=== PATIENT | female | born 1970 | race Caucasian/White ===

== ENCOUNTER 2017-02-22 17:13 | Emergency (ER) | payer SELFPAY ==
[2017-02-22] MEDS ORDERED: NS 0.9% 1000 ML* 2,000 ML IV ONE (18:28)
[2017-02-22] MEDS ORDERED: Ketorolac INJ* 30 MG/ML 1 ML VIAL IV PUSH ONE (18:28)
[2017-02-22] MEDS ORDERED: HYDROmorphone* 1 MG/ML 1 ML SYR IV SLOW PU ONE (18:28)
[2017-02-22] MEDS ORDERED: Ondansetron INJ* 2 MG/ML VIAL IV ONE (18:28)
[2017-02-22 18:34] LABS: Hematocrit 35 % (35-47); Mean Corpuscular HGB Conc 32 g/dl (31-36); Mean Corpuscular Hemoglobin 23 pg (27-31); Mean Corpuscular Volume 74 fL (80-97); Mean Platelet Volume 10 um3 (7.4-10.4); Red Blood Count 4.71 10^6/ul (4.0-5.4); Red Cell Distribution Width 17 % (10.5-15); White Blood Count 14.1 10^3/ul (3.5-10.8)
[2017-02-22 18:36] LABS: Add Diff/Slide Review? Slide Review Added; Comments Flag Yes
[2017-02-22 18:47] LABS: ALT 13 U/L (7-52); AST 17 U/L (13-39); Albumin 4.3 g/dL (3.2-5.2); Alkaline Phosphatase 91 U/L (34-104); Anion Gap 12 mmol/L (2-11); BUN/Creatinine Ratio 15.8 (8-20); Blood Urea Nitrogen 12 mg/dL (6-24); CO2 Carbon Dioxide 20 mmol/L (22-32); Calcium 8.9 mg/dL (8.6-10.3); Chloride 103 mmol/L (101-111); EGFR African American 106.3 (>60); EGFR Non-African American 82.7 (>60); Globulin 4.1 g/dL (2-4); Glucose 133 mg/dL (70-100); Lipase 20 U/L (11.0-82.0); Potassium 3.4 mmol/L (3.5-5.0); Sodium 135 mmol/L (133-145); Total Protein 8.4 g/dL (6.4-8.9)
[2017-02-22 18:49] LABS: Troponin I 0.01 ng/mL (<0.04)
--- NOTE | 2017-02-22 19:15 | RAD ---
INDICATION: LEFT side abdominal pain. History of kidney stones. COMPARISON: September 13, 2008 CT. TECHNIQUE: Multidetector CT images were obtained from the lung bases to the ischial tuberosities. Evaluation of the viscera is limited without IV contrast. Multiplanar reformation. REPORT: Unremarkable visualized inferior thorax. Negative for CT abnormality of the unenhanced liver, gallbladder, pancreas, spleen. Negative for CT abnormality of the upper GI, small bowel, infra cecal appendix, or colon. Negative for ascites or free air. Small fat-containing umbilical hernia without inflammatory change. Normal adrenal glands. Unremarkable RIGHT kidney and ureter. Tiny hyperdense cortical cyst upper pole cortex LEFT kidney. Moderate LEFT hydroureteronephrosis is traced to a 3.5 mm stone at the ureteropelvic junction. No additional abnormality of the LEFT ureter. Mild LEFT perinephric inflammatory stranding. Punctate gas bubble in the urinary bladder. Unremarkable anteverted uterus and adnexal regions. Normal diameter abdominal aorta and common iliac arteries. Physiologic distention of the IVC. Unchanged sclerotic lesion with narrow zone transition at the RIGHT femoral neck compared with the 2009 exam consistent with a benign bone island. No suspicious focal osseous lesions. IMPRESSION: Moderate LEFT hydronephrosis is traced to a 3.5 mm ureteropelvic junction stone. Associated mild LEFT perinephric inflammatory stranding.
[2017-02-22] MEDS ORDERED: Tamsulosin CAP* 0.4 MG PO ONE (19:32)
[2017-02-22] MEDS ORDERED: traMADol TAB* 50 MG PO ONE ×2 (21:09→21:24)
--- NOTE | 2017-02-22 21:10 | ED ---
GI/ HPI - HPI Summary HPI Summary: 46F presents with left flank pain. It radiates up to her breast and down to her groin. She states this feels like her normal kidney pain but that is it in a different location. She denies any frequency, urgency or dysuria. She is currently on her menstrual period. She denies any previous abdominal surgeries. She admits to nausea and vomiting. She denies any fever, diarrhea or constipation. She has not taken anything for pain but is in extreme pain. - History of Current Complaint Chief Complaint: EDFlankPain Time Seen by Provider: 02/22/17 18:18 Stated Complaint: LOWER ABD PAIN Pain Intensity: 9 - Allergy/Home Medications Allergies/Adverse Reactions: Allergies Allergy/AdvReac Type Severity Reaction Status Date / Time Morphine Allergy Severe agressive Verified 09/06/15 09:24 behavior Penicillins Allergy Severe Anaphylatic Verified 09/06/15 09:24 Shock PMH/Surg Hx/FS Hx/Imm Hx Endocrine/Hematology History: Denies: Hx Diabetes, Hx Thyroid Disease Cardiovascular History: Denies: Hx Coronary Artery Disease, Hx Hypercholesterolemia, Hx Hypertension Respiratory History: Denies: Hx Asthma, Hx Chronic Obstructive Pulmonary Disease (COPD), Hx Pulmonary Embolism Infectious Disease History: No Infectious Disease History: Denies: Traveled Outside the [place] in Last 30 Days - Family History Known Family History: Positive: Unknown, Cardiac Disease - Social History Alcohol Use: None Hx Substance Use: No Substance Use Type: Reports: None Smoking Status (MU): Never Smoked Tobacco Review of Systems Negative: Fever Negative: Chest Pain Negative: Shortness Of Breath Positive: Abdominal Pain, Vomiting, Nausea All Other Systems Reviewed And Are Negative: Yes Physical Exam Triage Information Reviewed: Yes Vital Signs On Initial Exam: Initial Vitals Temp Pulse Resp BP Pulse Ox 96.9 F 78 26 159/86 100 02/22/17 17:35 02/22/17 17:35 02/22/17 17:35 02/22/17 17:35 02/22/17 17:35 Vital Signs Reviewed: Yes Appearance: Positive: Pain Distress Skin: Positive: Warm, Dry Head/Face: Positive: Normal Head/Face Inspection Eyes: Positive: Normal, Conjunctiva Clear ENT: Positive: Normal ENT inspection, Pharynx normal, TMs normal Respiratory/Lung Sounds: Positive: Clear to Auscultation, Breath Sounds Present Cardiovascular: Positive: Normal, RRR Abdomen Description: Positive: Soft, Other: - tenderness in left side abdomen. Negative: CVA Tenderness (R), CVA Tenderness (L) Bowel Sounds: Positive: Present - Jenise Coma Scale Coma Scale Total: 15 Diagnostics - Vital Signs Vital Signs Temp Pulse Resp BP Pulse Ox 02/22/17 18:42 20 02/22/17 18:13 71 12 100 02/22/17 18:12 153/87 02/22/17 18:07 99.3 F 68 20 153/87 100 02/22/17 17:35 96.9 F 78 26 159/86 100 - Laboratory Lab Results: Lab Results 02/22/17 02/22/17 Range/Units 18:05 18:05 WBC 14.1 H (3.5-10.8) 10^3/ul RBC 4.71 (4.0-5.4) 10^6/ul Hgb 11.0 L (12.0-16.0) g/dl Hct 35 (35-47) % MCV 74 L (80-97) fL MCH 23 L (27-31) pg MCHC 32 (31-36) g/dl RDW 17 H (10.5-15) % Plt Count 314 (150-450) 10^3/ul MPV 10 (7.4-10.4) um3 Neut % (Auto) 82.9 (38-83) % Lymph % (Auto) 12.4 L (25-47) % Refugio % (Auto) 3.8 (1-9) % Eos % (Auto) 0.4 (0-6) % Baso % (Auto) 0.5 (0-2) % Absolute Neuts (auto) 11.6 H (1.5-7.7) 10^3/ul Absolute Lymphs (auto) 1.7 (1.0-4.8) 10^3/ul Absolute Monos (auto) 0.5 (0-0.8) 10^3/ul Absolute Eos (auto) 0.1 (0-0.6) 10^3/ul Absolute Basos (auto) 0.1 (0-0.2) 10^3/ul Absolute Nucleated RBC 0 10^3/ul Nucleated RBC % 0 Sodium 135 (133-145) mmol/L Potassium 3.4 L (3.5-5.0) mmol/L Chloride 103 (101-111) mmol/L Carbon Dioxide 20 L (22-32) mmol/L Anion Gap 12 H (2-11) mmol/L BUN 12 (6-24) mg/dL Creatinine 0.76 (0.51-0.95) mg/dL Est GFR ( Amer) 106.3 (>60) Est GFR (Non-Af Amer) 82.7 (>60) BUN/Creatinine Ratio 15.8 (8-20) Glucose 133 H (70-100) mg/dL Calcium 8.9 (8.6-10.3) mg/dL Total Bilirubin 0.50 (0.2-1.0) mg/dL AST 17 (13-39) U/L ALT 13 (7-52) U/L Alkaline Phosphatase 91 (34-104) U/L Troponin I 0.01 (<0.04) ng/mL C-React Prot High Sens 7.95 mg/L Total Protein 8.4 (6.4-8.9) g/dL Albumin 4.3 (3.2-5.2) g/dL Globulin 4.1 H (2-4) g/dL Albumin/Globulin Ratio 1.0 (1-3) Lipase 20 (11.0-82.0) U/L Beta HCG, Quant < 0.60 mIU/mL Result Diagrams: 02/22/17 18:05 02/22/17 18:05 Lab Statement: Any lab studies that have been ordered have been reviewed, and results considered in the medical decision making process. - CT abd CT Interpretation: Positive (See Comments) - IMPRESSION: Moderate LEFT hydronephrosis is traced to a 3.5 mm ureteropelvic junction stone. Associated mild LEFT perinephric inflammatory stranding. CT Interpretation Completed By: Radiologist - EKG No standard instances Cardiac Rate: NL EKG Rhythm: Sinus Rhythm ST Segment: Normal GIGU Course/Dx - Course Course Of Treatment: 46F presents with left flank pain. It radiates up to her breast and down to her groin. She states this feels like her normal kidney pain but that is it in a different location. She denies any frequency, urgency or dysuria. She is currently on her menstrual period. She denies any previous abdominal surgeries. She admits to nausea and vomiting. She denies any fever, diarrhea or constipation. She has not taken anything for pain but is in extreme pain. tenderness left side abdomen. lungs CTA. RRR. neg CVA tenderness left. CT shows stone 3.5cm. gave pain medication and told to follow up with urology. patient requested least sedating of pain medication so gave tramadol. patient understands and agrees with plan. - Diagnoses Differential Diagnoses - Female: Pyelonephritis, Urinary Tract Infection, Ureteral Calculi Provider Diagnoses: Kidney stone Discharge - Discharge Plan Condition: Good Disposition: HOME Prescriptions: Ondansetron ODT TAB* [Zofran 4 MG Odt TAB*] 4 mg PO Q6H PRN #12 tab.odt PRN Reason: Nausea Tamsulosin CAP* [Flomax CAP*] 0.4 mg PO DAILY #10 cap traMADol TAB* [Ultram*] 50 mg PO Q6HR PRN #20 tab MDD 4 PRN Reason: Pain Patient Education Materials: Kidney Stones (ED) Referrals: Alice Clay MD [Primary Care Provider] - Steve Munroe MD [Medical Doctor] - Additional Instructions: Take ibuprofen every 6 hours and narcotic as needed every 6 hours Take Zofran every 6 hours for nausea as needed Take Flomax daily starting tomorrow, first dose given in ED until stone expelled , make sure stand up slowly Follow up with urology, call office tomorrow for appointment Strain urine until collect stone Return to ED if unable to manage pain at home, develop fever, or any new or worsening symptoms
[2017-02-22 21:18] LABS: Urine Bacteria Absent (Absent); Urine Bilirubin Negative (Negative); Urine Glucose Negative (Negative); Urine Nitrite Negative (Negative)
[2017-02-22] MEDS ORDERED: Ondansetron ODT TAB* 4 MG PO ONE (21:24)
[2017-02-22 21:31] VITALS: BP 142/73
== END 2017-02-22 21:49 | disposition home or self-care (01) ==
LOC: ED 17:13
DX: N20.0 Calculus of kidney (principal); R10.84 Generalized abdominal pain; R11.2 Nausea with vomiting, unspecified
CPT/HCPCS: 36415; 74176; 80053; 81003; 81015; 83690; 84484; 84702; 85025; 86141; 93005; 96374; 96375; 99283; A9270-GY; J1170; J1885; J2405

== ENCOUNTER 2017-12-10 07:12 | Emergency (ER) | payer MEDICAID ==
--- NOTE | 2017-12-10 07:59 | ED ---
Adult Trauma - HPI Summary HPI Summary: 47-year-old female presents with neck pain rib pain and knee pain after injury on Friday. She states that she went out of her RV and slipped on the mud and fell on her head. She denies any loss consciousness. She denies any Blood thinners uasage. She admits to neck pain on the right side of her neck. no midline tenderness. no weakness. She has to admits to right-sided rib pain. She states that she takes a deep breath it makes pain worse. She denies abdominal pain. She denies any lower back pain. She also states that her left knee twisted funny and has been having left knee pain. She still able to ambulate. She also jammed her left ring finger. She denies any previous injury to these areas. She has been taking Tylenol for pain. She denies any nausea vomiting. She denies any change in vision. She denies any dizziness. She states her headache has resolved. She states the knee has been giving out on her. - History of Current Complaint Pain Intensity: 7 <Gaby Beach - Last Filed: 12/10/17 08:44> <Destinee Torre - Last Filed: 12/12/17 11:57> - History of Current Complaint Chief Complaint: EDTraumaMultiple Stated Complaint: LEFT KNEE INJURY Time Seen by Provider: 12/10/17 07:27 - Allergy/Home Medications Allergies/Adverse Reactions: Allergies Allergy/AdvReac Type Severity Reaction Status Date / Time MS Morphine [Morphine] Allergy Severe agressive Verified 12/10/17 07:23 behavior MS Penicillins [Penicillins] Allergy Severe Anaphylatic Verified 12/10/17 07:23 Shock Home Medications: Home Medications NK [No Home Medications Reported] 12/10/17 [History Confirmed 12/10/17] PMH/Surg Hx/FS Hx/Imm Hx Endocrine/Hematology History: Denies: Hx Diabetes, Hx Thyroid Disease Cardiovascular History: Denies: Hx Coronary Artery Disease, Hx Hypercholesterolemia, Hx Hypertension Respiratory History: Denies: Hx Asthma, Hx Chronic Obstructive Pulmonary Disease (COPD), Hx Pulmonary Embolism Infectious Disease History: No Infectious Disease History: Denies: Traveled Outside the [place] in Last 30 Days - Family History Known Family History: Positive: Unknown, Cardiac Disease - Social History Alcohol Use: None Hx Substance Use: No Substance Use Type: Reports: None Smoking Status (MU): Never Smoked Tobacco <Gaby Beach - Last Filed: 12/10/17 08:44> Review of Systems Negative: Fever Positive: Other - right rib pain. Negative: Chest Pain Positive: Shortness Of Breath. Negative: Cough Negative: Abdominal Pain Positive: Myalgia - left knee and ring finger Negative: Headache - resolved All Other Systems Reviewed And Are Negative: Yes <Gaby Beach - Last Filed: 12/10/17 08:44> Physical Exam Triage Information Reviewed: Yes Vital Signs On Initial Exam: Initial Vitals Temp Pulse Resp BP Pulse Ox 98.2 F 90 20 146/94 100 12/10/17 07:19 12/10/17 07:19 12/10/17 07:19 12/10/17 07:19 12/10/17 07:19 Vital Signs Reviewed: Yes Appearance: Positive: Well-Appearing Skin: Positive: Warm, Dry Head/Face: Positive: Normal Head/Face Inspection, Other - No step off, raccoon eyes, kimbrough sign Eyes: Positive: Normal, EOMI, VINH, Conjunctiva Clear ENT: Positive: Normal ENT inspection, Pharynx normal, TMs normal Neck: Positive: Other: - No midline tenderness, tenderness over right side of neck Respiratory/Lung Sounds: Positive: Clear to Auscultation, Breath Sounds Present , Other - Tenderness over her posterior right ribs 10 through 12, no step off Cardiovascular: Positive: Normal, RRR Musculoskeletal: Positive: Strength/ROM Intact - left knee, Edema Left - PIP left ring finger, Other - Tenderness over left knee, neg anterior drawer, possible laxity with valgus and varus, good pulses, sensation grossly intact, tenderness over PIP left left index finger with ecchymosis Neurological: Positive: Sensory/Motor Intact, Alert, Oriented to Person Place, Time, CN Intact II-III Psychiatric: Positive: Normal - Jenise Coma Scale Best Eye Response: 4 - Spontaneous Best Motor Response: 6 - Obeys Commands Best Verbal Response: 5 - Oriented Coma Scale Total: 15 <Gaby Beach - Last Filed: 12/10/17 08:44> Vital Signs On Initial Exam: Initial Vitals Temp Pulse Resp BP Pulse Ox 98.2 F 90 20 146/94 100 12/10/17 07:19 12/10/17 07:19 12/10/17 07:19 12/10/17 07:19 12/10/17 07:19 <Destinee Torre - Last Filed: 12/12/17 11:57> Diagnostics - Vital Signs Vital Signs Temp Pulse Resp BP Pulse Ox 12/10/17 07:19 98.2 F 90 20 146/94 100 - Radiology rib Xray Interpretation: No Acute Changes Radiology Interpretation Completed By: Radiologist finger Xray Interpretation: No Acute Changes Radiology Interpretation Completed By: Radiologist knee Xray Interpretation: No Acute Changes Radiology Interpretation Completed By: Radiologist <Gaby Beach - Last Filed: 12/10/17 08:44> - Vital Signs Vital Signs Temp Pulse Resp BP Pulse Ox 12/10/17 09:22 98.5 F 88 16 143/90 98 12/10/17 07:19 98.2 F 90 20 146/94 100 <Destinee Torre - Last Filed: 12/12/17 11:57> Adult Trauma Course/Dx - Course Course Of Treatment: 47-year-old female presents with neck pain rib pain and knee pain after injury on Friday. She states that she went out of her RV and slipped on the mud and fell on her head. She denies any loss consciousness. She denies any Blood thinners uasage. She admits to neck pain on the right side of her neck. no midline tenderness. no weakness. She has to admits to right-sided rib pain. She states that she takes a deep breath it makes pain worse. She denies abdominal pain. She denies any lower back pain. She also states that her left knee twisted funny and has been having left knee pain. She still able to ambulate. She also jammed her left ring finger. She denies any previous injury to these areas. She has been taking Tylenol for pain. She denies any nausea vomiting. She denies any change in vision. She denies any dizziness. She states her headache has resolved. On exam normal neuro exam. No midline tenderness neck. Tenderness in right side of neck. Tenderness ribs. 12 on the posterior aspect of right ribs. Tenderness over left patella tenderness PIP of the left index finger. Neurovascularly intact. X-rays neg. will treat conservatively with RICE and if no improvement told to follow up with ortho. patient understand and agrees with plan. - Diagnoses Differential Diagnosis/HQI/PQRI: Positive: Contusion(s), Fracture, Sprain <Gaby Beach - Last Filed: 12/10/17 08:44> <Destinee Torre - Last Filed: 12/12/17 11:57> - Diagnoses Provider Diagnoses: Fall, Head injury, Neck pain, Left knee pain, Injury of left ring finger, Rib pain on right side Discharge - Sign-Out/Discharge Documenting (check all that apply): Discharge/Admit/Transfer - Billing Disposition and Condition Condition: GOOD Disposition: HOME <Gaby Beach - Last Filed: 12/10/17 08:44> - Billing Disposition and Condition Condition: GOOD Disposition: HOME <Destinee Torre - Last Filed: 12/12/17 11:57> - Discharge Plan Condition: Good Disposition: HOME Patient Education Materials: R.I.C.E. Treatment (ED), Rib Contusion (ED) Referrals: Alice Clay MD [Medical Doctor] - Angelique Parsons MD [Medical Doctor] - Additional Instructions: Take Tylenol or ibuprofen every 6 hours as needed for pain Apply ice, rest, elevate Take deep breaths thoughout the day use immobilizer on knee Follow up with ortho if no improvement in a week Return to ED if develop any new or worsening symptoms Attestation Statement User Type: Provider - I was available for consult. This patient was seen by the JUAQUIN. The patient was not presented to, seen by, or examined by me. -Nedra <Destinee Torre - Last Filed: 12/12/17 11:57>
--- NOTE | 2017-12-10 08:23 | RAD ---
HISTORY: Left ring finger injury COMPARISONS: None VIEWS: 3, Frontal, lateral, and oblique views of the fourth digit of the left hand FINDINGS: BONE DENSITY: Normal. BONES: There is no displaced fracture. JOINTS: There is no arthropathy. ALIGNMENT: There is no dislocation. SOFT TISSUES: There is soft tissue swelling along the proximal phalanx. OTHER FINDINGS: None. IMPRESSION: SOFT TISSUE SWELLING. NO ACUTE OSSEOUS INJURY. IF SYMPTOMS PERSIST, RECOMMEND REPEAT IMAGING.
--- NOTE | 2017-12-10 08:24 | RAD ---
HISTORY: Left knee pain, injury COMPARISONS: January 14, 2013 VIEWS: 4, Frontal, lateral, axial, and oblique views of the left knee FINDINGS: BONE DENSITY: Normal. BONES: There is no displaced fracture. JOINTS: There is no arthropathy. There is no suprapatellar joint effusion or lipohemarthrosis. ALIGNMENT: There is no dislocation. SOFT TISSUES: Unremarkable. OTHER FINDINGS: None. IMPRESSION: NO ACUTE OSSEOUS INJURY. IF SYMPTOMS PERSIST, RECOMMEND REPEAT IMAGING.
--- NOTE | 2017-12-10 08:24 | RAD ---
INDICATION: Right rib pain after a fall COMPARISON: CT abdomen pelvis February 22, 2017 TECHNIQUE: 4 views of the right ribs were obtained. FINDINGS: No fracture or significant focal osseous abnormality is seen. No pneumothorax is apparent. Limited views demonstrate grossly clear lungs. IMPRESSION: No radiographically apparent displaced rib fracture or pneumothorax. If the patient's symptoms persist, follow-up imaging is recommended.
[2017-12-10 09:27] VITALS: BP 143/90
== END 2017-12-10 09:22 | disposition home or self-care (01) ==
LOC: ED 07:12
DX: S09.90XA Unspecified injury of head, initial encounter (principal); M54.2 Cervicalgia; M25.562 Pain in left knee; S69.92XA Unspecified injury of left wrist, hand and finger(s), initial encounter; R07.81 Pleurodynia; W01.0XXA Fall on same level from slipping, tripping and stumbling without subsequent striking against object, initial encounter; Y92.9 Unspecified place or not applicable; Z88.5 Allergy status to narcotic agent; Z88.0 Allergy status to penicillin
CPT/HCPCS: 73140; 99282

== ENCOUNTER 2018-08-31 10:13 | Emergency (ER) | payer MEDICAID ==
--- NOTE | 2018-08-31 12:27 | ED ---
Upper Extremity Pain - HPI Summary HPI Summary: Patient is a 47-year-old female who presents emergency department for a right shoulder/clavicle injury that occurred 4 days ago. Patient states [place] a cow ran into her right shoulder. She states the cow pushed her backwards onto her buttocks but she did not strike her head or loose consciousness. She denies headache, neck pain, back pain, chest pain, shortness of breath, hematuria, abdominal pain commands, tingling or weakness. She has no past medical history. Patient states right shoulder pain has persisted and she presents for evaluation. Has been taking Tylenol with mild improvement of pain. Symptoms are mild in severity. Movement makes symptoms worse. Rest makes symptoms better. - History of Current Complaint Chief Complaint: EDExtremityUpper Stated Complaint: RIGHT SHOULDER/COLLAR BONE INJURY Time Seen by Provider: 08/31/18 10:35 Hx Obtained From: Patient - Allergies/Home Medications Allergies/Adverse Reactions: Allergies Allergy/AdvReac Type Severity Reaction Status Date / Time morphine Allergy Anxiety Verified 08/31/18 10:20 Penicillins Allergy Anaphylatic Verified 08/31/18 10:20 Shock Home Medications: Home Medications Acetaminophen [Tylenol Extra Strength] 500 - 1,000 mg PO Q8HR PRN 08/31/18 [ History Confirmed 08/31/18] PMH/Surg Hx/FS Hx/Imm Hx Previously Healthy: Yes Endocrine/Hematology History: Denies: Hx Diabetes, Hx Thyroid Disease Cardiovascular History: Denies: Hx Coronary Artery Disease, Hx Hypercholesterolemia, Hx Hypertension Respiratory History: Denies: Hx Asthma, Hx Chronic Obstructive Pulmonary Disease (COPD), Hx Pulmonary Embolism Infectious Disease History: No Infectious Disease History: Denies: Traveled Outside the [place] in Last 30 Days - Family History Known Family History: Positive: Unknown, Cardiac Disease - Social History Occupation: Unemployed Lives: With Family Alcohol Use: None Hx Substance Use: No Substance Use Type: Reports: None Smoking Status (MU): Never Smoked Tobacco Review of Systems Cardiovascular: Negative Negative: Chest Pain Respiratory: Negative Negative: Shortness Of Breath Gastrointestinal: Negative Negative: Abdominal Pain Genitourinary: Negative Negative: hematuria Positive: Other - Right shoulder pain Skin: Negative Negative: Weakness, Paresthesia, Numbness All Other Systems Reviewed And Are Negative: Yes Physical Exam Triage Information Reviewed: Yes Vital Signs On Initial Exam: Initial Vitals Temp Pulse Resp BP Pulse Ox 99 F 92 16 152/103 100 08/31/18 10:16 08/31/18 10:16 08/31/18 10:16 08/31/18 10:16 08/31/18 10:16 Vital Signs Reviewed: Yes Appearance: Positive: Well-Appearing - Pt. sitting on bed in NAD. Skin: Positive: Warm, Dry Head/Face: Positive: Normal Head/Face Inspection Eyes: Positive: Normal, EOMI Neck: Positive: Supple, Nontender Respiratory/Lung Sounds: Positive: Clear to Auscultation, Breath Sounds Present Cardiovascular: Positive: Normal, RRR Musculoskeletal: Positive: Other - Good right radial pulse. 5/5 strength in hand. Pain on palpation over right clavicle and shoulder. No obvious deformity. No ecchymosis, edema, erythema, or wounds. Neurological: Positive: Normal, CN Intact II-III Psychiatric: Positive: Affect/Mood Appropriate Diagnostics - Vital Signs Vital Signs Temp Pulse Resp BP Pulse Ox 08/31/18 10:16 99 F 92 16 152/103 100 - Laboratory Lab Statement: Any lab studies that have been ordered have been reviewed, and results considered in the medical decision making process. Course/Dx - Course Course Of Treatment: Patient presenting with ongoing right shoulder pain after being struck by a cow. Blood pressure is elevated but vital signs are otherwise stable. She is no other injuries were complaints other than right shoulder pain. No hematoma seen on exam. X-rays of the chest and shoulder are negative for patient are fracture, reading per radiology. Patient patient in a sling for a few days. Advised her to not wear sling all the time and to take her shoulder out and do gentle range of motion. Given injury and ongoing pain over follow up with orthopedics for further evaluation. Advised ice intermittently. Tylenol or Motrin for pain as directed. To avoid heavy lifting. Return to the ER if symptoms change or worsen. Patient understands and agrees with this plan. - Diagnoses Differential Diagnosis/HQI/PQRI: Positive: Arthritis, Contusion, Fracture (Open) , Fracture (Closed), Hematoma, Strain, Sprain Provider Diagnoses: Shoulder injury Discharge - Sign-Out/Discharge Documenting (check all that apply): Patient Departure Patient Received Moderate/Deep Sedation with Procedure: No - Discharge Plan Condition: Good Disposition: HOME Patient Education Materials: Shoulder Sprain (ED) Referrals: Ritu Jacobs MD [Medical Doctor] - Additional Instructions: Schedule a follow up appointment with orthopedics for further evaluation Sling x 3 days Gentle shoulder range of motion Tylenol or Motrin for pain as directed Apply ice intermittently Activity as tolerated Return to ER if symptoms change or worsen - Billing Disposition and Condition Condition: GOOD Disposition: Home
[2018-08-31 12:31] VITALS: BP 145/88
== END 2018-08-31 12:30 | disposition home or self-care (01) ==
LOC: ED 10:13
DX: S49.91XA Unspecified injury of right shoulder and upper arm, initial encounter (principal); W55.22XA Struck by cow, initial encounter; Y92.79 Other farm location as the place of occurrence of the external cause; M19.011 Primary osteoarthritis, right shoulder; Z88.0 Allergy status to penicillin
CPT/HCPCS: 71045; 99282

== ENCOUNTER 2019-02-07 13:30 | Emergency (ER) | payer OTHER ==
[2019-02-07 13:42] VITALS: BP 138/80
[2019-02-07] MEDS ORDERED: Ibuprofen TAB* 600 MG PO ONE (14:03)
--- NOTE | 2019-02-07 14:09 | UC ---
Lower Extremity/Ankle HPI - HPI Summary HPI Summary: Patient is a 48-year-old female who presents to the urgent care with chief complaint of pain in the left heel for the last couple weeks. She reports that she started having this pain about a month ago and she describes as a sharp pain intermittently when she ambulates. Pain is rated as 8 out of 10 heaviness radiating to the left knee. She has no history of trauma or heavy lifting. She denies any redness, throbbing pain, or increase in temperature. She has no other complaints. - History of Current Complaint Chief Complaint: UCLowerExtremity Stated Complaint: lt FOOT/LEG PAIN Time Seen by Provider: 02/07/19 13:52 Hx Obtained From: Patient Hx Last Menstrual Period: 01/27/19 Onset/Duration: Gradual Onset Severity Initially: Mild Pain Intensity: 7 - Allergies/Home Medications Allergies/Adverse Reactions: Allergies Allergy/AdvReac Type Severity Reaction Status Date / Time morphine Allergy Anxiety Verified 02/07/19 13:43 Penicillins Allergy Anaphylatic Verified 02/07/19 13:43 Shock PMH/Surg Hx/FS Hx/Imm Hx Previously Healthy: Yes - Surgical History Surgical History: None - Family History Known Family History: Positive: Unknown, Cardiac Disease - Social History Alcohol Use: None Substance Use Type: None Smoking Status (MU): Never Smoked Tobacco Review of Systems All Other Systems Reviewed And Are Negative: Yes Constitutional: Positive: Negative Skin: Positive: Negative Eyes: Positive: Negative ENT: Positive: Negative Respiratory: Positive: Negative Cardiovascular: Positive: Negative Gastrointestinal: Positive: Negative Genitourinary: Positive: Negative Motor: Positive: Negative Neurovascular: Positive: Negative Musculoskeletal: Positive: Negative, Other: - Left foot pain Neurological: Positive: Negative Psychological: Positive: Negative Is Patient Immunocompromised?: No Physical Exam - Summary Physical Exam Summary: VITAL SIGNS: Reviewed. GENERAL: Patient is an obese female who is lying comfortably in the stretcher. Patient is not in any acute respiratory distress. HEAD AND FACE: No signs of trauma. No ecchymosis, hematomas or skull depressions. No sinus tenderness. EYES: PERRLA, EOMI x 2, No injected conjunctiva, no nystagmus. EARS: Hearing grossly intact. Ear canals and tympanic membranes are within normal limits. MOUTH: Oropharynx within normal limits. NECK: Supple, trachea is midline, no adenopathy, no JVD, no carotid bruit, no c- spine tenderness, neck with full ROM. CHEST: Symmetric, no tenderness at palpation LUNGS: Clear to auscultation bilaterally. No wheezing or crackles. CVS: Regular rate and rhythm, S1 and S2 present, no murmurs or gallops appreciated. ABDOMEN: Soft, non-tender. No signs of distention. No rebound no guarding, and no masses palpated. Bowel sounds are normal. EXTREMITIES: FROM in all major joints, no edema, no cyanosis or clubbing. Positive tenderness along the left heel. There is no redness, there is no swelling, there is no deformity, and lower extremity has positive pulses and good capillary refill. NEURO: Alert and oriented x 3. No acute neurological deficits. Speech is normal and follows commands. SKIN: Dry and warm Triage Information Reviewed: Yes Appearance: Well-Appearing Vital Signs: Initial Vital Signs Temp 99.6 F 02/07/19 13:39 Pulse 90 02/07/19 13:39 Resp 17 02/07/19 13:39 BP 138/80 02/07/19 13:39 Pulse Ox 100 02/07/19 13:39 Vital Signs Reviewed: Yes Lower Extremity Course/Dx - Course Course Of Treatment: I believe that the patient has plantar fasciitis. Therefore the patient was given ibuprofen for the pain. She was recommended to decrease in weight, and follow up with the primary care physician. I do not believe that the patient would benefit of an x-ray since the patient does have any history of trauma or heavy lifting. Patient was recommended to return to the urgent care or go to the emergency department if she develops increasing pain, redness, swelling, or any other symptom. She understands and agrees. - Differential Dx/Diagnosis Provider Diagnosis: Plantar fasciitis of left foot Discharge - Sign-Out/Discharge Documenting (check all that apply): Patient Departure All imaging exams completed and their final reports reviewed: No Studies - Discharge Plan Condition: Stable Disposition: HOME Prescriptions: Ibuprofen TAB* [Motrin TAB* 800 MG] 800 mg PO ONCE PRN #20 tab PRN Reason: Pain Patient Education Materials: Plantar Fasciitis Exercises (GEN), Plantar Fasciitis (ED) Referrals: No Primary Care Phys,NOPCP [Primary Care Provider] - [facility] [place] [facility] [Outside] Additional Instructions: Take ibuprofen as needed Increase your fluid intake F/U with PCP in the next 2-3 days Return to the UC if symptoms worsen - Billing Disposition and Condition Condition: STABLE Disposition: Home
== END 2019-02-07 14:11 | disposition home or self-care (01) ==
LOC: UCEAST 13:30
DX: M72.2 Plantar fascial fibromatosis (principal); Z88.5 Allergy status to narcotic agent; Z88.0 Allergy status to penicillin
CPT/HCPCS: 99212; A9270-GY; G0463

== ENCOUNTER 2019-03-08 14:11 | Emergency (ER) | payer OTHER ==
--- NOTE | 2019-03-08 14:20 | ED ---
Lower Extremity - HPI Summary HPI Summary: Patient is a 48-year-old female who presents to the emergency department for left foot and ankle injury that occurred last week. Patient states she slipped and twisted left foot and ankle. Pain is exacerbated with walking. Symptoms are mild in severity. Patient notes chronic pain to left foot. - History of Current Complaint Chief Complaint: EDExtremityLower Stated Complaint: TINGLING/PAIN IN LEFT ANKLE AND KNEE PER PT Time Seen by Provider: 03/08/19 14:18 Hx Obtained From: Patient Hx Last Menstrual Period: 01/27/19 Pain Intensity: 5 - Allergies/Home Medications Allergies/Adverse Reactions: Allergies Allergy/AdvReac Type Severity Reaction Status Date / Time morphine Allergy Anxiety Verified 02/07/19 13:43 Penicillins Allergy Anaphylatic Verified 02/07/19 13:43 Shock Home Medications: Home Medications Norethindrone-Ethinyl Estrad [Nortrel /35 (21)] 1 tab PO DAILY 03/08/19 [ History Confirmed 03/08/19] PMH/Surg Hx/FS Hx/Imm Hx Previously Healthy: Yes Endocrine/Hematology History: Denies: Hx Diabetes, Hx Thyroid Disease Cardiovascular History: Denies: Hx Coronary Artery Disease, Hx Hypercholesterolemia, Hx Hypertension Respiratory History: Denies: Hx Asthma, Hx Chronic Obstructive Pulmonary Disease (COPD), Hx Pulmonary Embolism Infectious Disease History: No Infectious Disease History: Denies: Traveled Outside the [place] in Last 30 Days - Family History Known Family History: Positive: Unknown, Cardiac Disease, Non-Contributory - Social History Occupation: Employed Full-time Lives: With Family Alcohol Use: None Hx Substance Use: No Substance Use Type: Reports: None Smoking Status (MU): Never Smoked Tobacco Review of Systems Constitutional: Negative Negative: Fever, Chills Positive: Other - pain to left foot and ankle Skin: Negative Negative: Weakness, Paresthesia, Numbness All Other Systems Reviewed And Are Negative: Yes Physical Exam Triage Information Reviewed: Yes Vital Signs On Initial Exam: Initial Vitals Temp Pulse Resp BP Pulse Ox 98.9 F 96 18 160/80 100 03/08/19 14:14 03/08/19 14:14 03/08/19 14:14 03/08/19 14:14 03/08/19 14:14 Vital Signs Reviewed: Yes Appearance: Positive: Well-Appearing - Pt. lying in bed in NAD> Skin: Positive: Warm, Dry Head/Face: Positive: Normal Head/Face Inspection Eyes: Positive: Normal, EOMI Neck: Positive: Supple Musculoskeletal: Positive: Other - Mild pain to lateral left foot and ankle. No calf pain or swelling. No wounds. No proximal pain. Neurological: Positive: Normal, CN Intact II-III Psychiatric: Positive: Affect/Mood Appropriate Diagnostics - Vital Signs Vital Signs Temp Pulse Resp BP Pulse Ox 03/08/19 14:14 98.9 F 96 18 160/80 100 - Laboratory Lab Statement: Any lab studies that have been ordered have been reviewed, and results considered in the medical decision making process. Lower Extremity Course/Dx - Course Course Of Treatment: xrays negative for acute findings per radiology. To ice and elevate. Tylenol or motrin for pain as directed. Will f.u with pcp. - Diagnoses Differential Diagnosis/HQI/PQRI: Positive: Fracture (Closed), Sprain, Strain Provider Diagnoses: Foot sprain Discharge ED - Sign-Out/Discharge Documenting (check all that apply): Patient Departure Patient Received Moderate/Deep Sedation with Procedure: No - Discharge Plan Condition: Good Disposition: HOME Patient Education Materials: Leg Sprain (ED) Forms: *Work Release Referrals: [facility] [Outside] Additional Instructions: Follow up with [facility] if pain persist Ice and elevate Activity as tolerated Tylenol or Motrin for pain as directed Return to ER if symptoms change or worsen - Billing Disposition and Condition Condition: GOOD Disposition: Home
[2019-03-08 16:22] VITALS: BP 161/93
== END 2019-03-08 16:21 | disposition home or self-care (01) ==
LOC: ED 14:11
DX: S93.602A Unspecified sprain of left foot, initial encounter (principal); X50.9XXA Other and unspecified overexertion or strenuous movements or postures, initial encounter; Y92.9 Unspecified place or not applicable; Z88.5 Allergy status to narcotic agent; Z88.0 Allergy status to penicillin; Z79.899 Other long term (current) drug therapy; M77.32 Calcaneal spur, left foot
CPT/HCPCS: 99281

== ENCOUNTER 2019-06-06 14:52 | Emergency (ER) | payer OTHER ==
--- NOTE | 2019-06-06 15:21 | ED ---
HPI Chest Pain - HPI Summary HPI Summary: 48-year-old female with no significant past medical history presents to the emergency department today with a chief complaint of chest discomfort which began around 10:00 this afternoon. She states she's never had a prior episode and this episode only lasted a few minutes. She states this episode began when she was holding her grandson at home. She denies associated symptoms during this episode such as diaphoresis, shortness breath, arm pain, chest pain, abdominal pain. She denies chest pain with activity. She does endorse taking OCPs. She denies recent travel, surgery, immobilization and denies ever having a blood clot in the past. She states she is currently asymptomatic in the emergency department. She denies any recent recreational drug use, alcohol use, tobacco use. She has a significant family history of hypertension, diabetes, heart disease. Patient denies fever, chest pain, abdominal pain, pain with urination, blood per rectum, dark stools, shortness of breath. - History of Current Complaint Chief Complaint: EDChestPainROMI Time Seen by Provider: 06/06/19 15:01 Hx Obtained From: Patient Hx Last Menstrual Period: 01/27/19 Onset/Duration: Started Hours Ago Timing: Intermittent, Lasting Minutes Initial Severity: Moderate Current Severity: Moderate Pain Intensity: 6 Pain Scale Used: 0-10 Numeric Chest Pain Location: Lower Sternal Chest Pain Radiates: No Character: Irregular Alleviating Factor(s): Rest Associated Signs and Symptoms: Negative: Vision Changes, Headaches, Numbness, Tingling, Weakness, Shortness of Breath, Syncope, Fever, Lightheadedness, Diaphoresis, Nausea, Abdominal Pain, Calf Pain/Swelling - Risk Factors Pulmonary Embolism Risk Factors: Oral Contraceptives AMI/ACS Risk Factors: Obesity, Family History - Allergy/Home Medications Allergies/Adverse Reactions: Allergies Allergy/AdvReac Type Severity Reaction Status Date / Time morphine Allergy Anxiety Verified 02/07/19 13:43 Penicillins Allergy Anaphylatic Verified 02/07/19 13:43 Shock Home Medications: Home Medications Norethindrone-Ethinyl Estrad [Nortrel 1-35 28 Tablet] 1 tab PO DAILY 06/06/19 [ History Confirmed 06/06/19] PMH/Surg Hx/FS Hx/Imm Hx Endocrine/Hematology History: Denies: Hx Diabetes, Hx Thyroid Disease Cardiovascular History: Denies: Hx Coronary Artery Disease, Hx Hypercholesterolemia, Hx Hypertension Respiratory History: Denies: Hx Asthma, Hx Chronic Obstructive Pulmonary Disease (COPD), Hx Pulmonary Embolism Infectious Disease History: No Infectious Disease History: Denies: Traveled Outside the [place] in Last 30 Days - Family History Known Family History: Positive: Unknown, Cardiac Disease, Non-Contributory - Social History Alcohol Use: None Hx Substance Use: No Substance Use Type: Reports: None Smoking Status (MU): Never Smoked Tobacco Review of Systems Constitutional: Negative Eyes: Negative Positive: Palpitations Respiratory: Negative Gastrointestinal: Negative Skin: Negative Neurological: Negative Positive: Anxious All Other Systems Reviewed And Are Negative: Yes Physical Exam Triage Information Reviewed: Yes Vital Signs On Initial Exam: Initial Vitals Temp Pulse Resp BP Pulse Ox 98.0 F 105 20 160/103 98 06/06/19 15:02 06/06/19 15:02 06/06/19 15:02 06/06/19 15:02 06/06/19 15:02 Vital Signs Reviewed: Yes Appearance: Positive: Well-Appearing, No Pain Distress, Well-Nourished, Obese Skin: Positive: Warm, Skin Color Reflects Adequate Perfusion, Pale Head/Face: Positive: Normal Head/Face Inspection Eyes: Positive: EOMI, VINH ENT: Positive: Hearing grossly normal Respiratory/Lung Sounds: Positive: Clear to Auscultation, Breath Sounds Present Cardiovascular: Positive: RRR, S1, S2 Abdomen Description: Positive: Nontender, Soft, Other: - Patient refused rectal examination and Hemoccult stool. Bowel Sounds: Positive: Present Neurological: Positive: Sensory/Motor Intact, Alert, Oriented to Person Place, Time, Speech Normal Psychiatric: Positive: Anxious - Tearful affect AVPU Assessment: Alert Procedures - Sedation Patient Received Moderate/Deep Sedation with Procedure: No Diagnostics - Vital Signs Vital Signs Temp Pulse Resp BP Pulse Ox 06/06/19 15:02 98.0 F 105 20 160/103 98 - Laboratory Result Diagrams: 06/06/19 15:26 06/06/19 15:25 Lab Statement: Any lab studies that have been ordered have been reviewed, and results considered in the medical decision making process. Chest Pain Course/Dx - Course Course Of Treatment: Patient was evaluated in the emergency department today with a chief complaint of palpitations which began this morning. The patient was seen and examined. Laboratory studies, diagnostic imaging and an EKG was performed to investigate pathology. EKG which returned showing sinus tachycardia at a rate of 114 bpm. No NE or QTC prolongation. No ST elevation however there are nonspecific T-wave abnormalities in lead 3. Normal axis. CBC returned showing leukocytosis with a neutrophil shift with a white blood count cell count of 15.3 and absolute neutrophil count of 12.6. Her CBC was also significant for a microcytic hypochromic anemia with an MCV of 55 and H&H of 8.1 /28. CBC done on February 22, 2017 shows hematocrit of 35. CBC also showed +1 polychromasia, +1 hypochromasia, +3 microcytosis, +1 target cells. INR is within normal limits there is no evidence of electrolyte abnormalities. Initial troponin was 0.01 and serial troponin showed 0.01 as well ruling out ischemic insult and myocardial infarction. CT of the chest showed no evidence of a pulmonary embolism or other acute pathology. Laboratory studies as well as diagnostic imaging revealed no acute pathology which requires immediate intervention at this time such as myocardial infarction, pulmonary embolus, pericarditis, atrial fibrillation, aortic dissection. It did reveal a microcytic hypochromic anemia which requires follow-up with her primary care physician. Patient refused rectal exam for Hemoccult stool to rule out GI bleed. Patient was hemodynamically stable and asymptomatic and required no transfusion during this visit. She is to follow-up with her primary care provider or [facility] for further evaluation and management of these results. She was informed to return to the emergency department immediately if she develops any new or worsening symptoms including lightheadedness, chest pain , fatigue, syncope. Patient agrees with this plan. - Chest Pain Differential Diagnosis/HQI/PQRI: Acute RI, ACS, Pulmonary Embolism - Diagnoses Provider Diagnoses: Microcytic hypochromic anemia Discharge ED - Sign-Out/Discharge Documenting (check all that apply): Patient Departure - Discharge Plan Condition: Stable Disposition: HOME Patient Education Materials: Heart Palpitations (ED), Anemia (ED) Forms: *Work Release Referrals: No Primary Care Phys,NOPCP [Primary Care Provider] - [facility] [Outside] (2-3 days ) Additional Instructions: You were seen in the emergency department today due to a discomfort in your chest. Laboratory results as well as radiological imaging revealed no acute pathology requiring immediate intervention. During your stay blood work did reveal a hypochromic microcytic anemia which requires further follow-up. Please see your primary care provider in the next 2-3 days for further evaluation including rectal examination for possible GI bleed. If you develop any new symptoms or worsening symptoms such as lightheadedness, chest pain, abdominal pain, syncope please return to the emergency Department immediately. Return to activity as tolerated. - Billing Disposition and Condition Condition: STABLE Disposition: Home
[2019-06-06 15:39] LABS: ABS Basophils 0.1 10^3/ul (0-0.2); ABS Eosinophils 0.2 10^3/ul (0-0.6); ABS Lymphocytes 1.8 10^3/ul (1.0-4.8); ABS Monocytes 0.5 10^3/ul (0-0.8); ABS Neutrophils 12.6 10^3/ul (1.5-7.7); Eosinophil % 1.3 %; Hematocrit 28 % (35-47); Hemoglobin 8.1 g/dL (12.0-16.0); Lymphocyte % 11.7 %; Mean Corpuscular HGB Conc 29 g/dL (31-36); Mean Corpuscular Hemoglobin 16 pg (27-31); Mean Corpuscular Volume 55 fL (80-97); Mean Platelet Volume 8.8 fL (7.4-10.4); Nucleated Red Blood Cells % 0.1; Platelet Count 432 10^3/uL (150-450); Red Blood Count 5.02 10^6 /uL (3.70-4.87); Red Cell Distribution Width 19 % (10-15); White Blood Count 15.3 10^3/uL (3.5-10.8)
[2019-06-06 15:44] LABS: INR 0.96 (0.82-1.09)
[2019-06-06 15:57] LABS: Troponin I 0.01 ng/mL (<0.04)
[2019-06-06 15:58] LABS: Albumin 3.9 g/dL (3.2-5.2); BUN/Creatinine Ratio 14.7 (8-20); Calcium 9.2 mg/dL (8.6-10.3); EGFR African American 112.7 (>60); EGFR Non-African American 93.2 (>60); Globulin 4.1 g/dL (2-4); Total Bilirubin 0.5 mg/dL (0.2-1.0)
[2019-06-06 16:17] LABS: Microcytosis 3+; Polychromasia 1+
[2019-06-06] MEDS ORDERED: Iohexol 350* (CONTRAST) 500 ML MDV IV ONE (16:36)
[2019-06-06] MEDS ORDERED: Lactated Ringers 1000 ML Bag* 1,000 ML IV SCH (17:00)
[2019-06-06 19:14] VITALS: BP 117/69
== END 2019-06-06 19:14 | disposition home or self-care (01) ==
LOC: ED 14:52
DX: D50.9 Iron deficiency anemia, unspecified (principal); R00.2 Palpitations; F41.9 Anxiety disorder, unspecified; M51.34 Other intervertebral disc degeneration, thoracic region; R00.0 Tachycardia, unspecified; Z88.5 Allergy status to narcotic agent; Z88.0 Allergy status to penicillin
CPT/HCPCS: 36415; 71275; 80053; 84484; 85025; 85060; 85610; 93005; 96360; 99284; Q9967

== ENCOUNTER 2019-08-09 17:41 | Emergency (ER) | payer OTHER ==
--- OUTSIDE RECORDS SUMMARY | 2019-08-09 17:46 | XMS REPORT | Continuity of Care Document ---
:1970 External Reference #:[id number] Author Name Vidya Stanley DO (transmitted by agent of provider Sarahi Dumont) Address [address] [place] [address] Care Team Providers Name Role Phone Linda Quinones MD - Internal Medicine Care Team Information Truck Packer [phone] Problems Description No Information Available Social History Type Date Description Comments Sex Unknown Tobacco Use Start: Unknown Never Smoked Cigarettes Smoking Status Reviewed: 06/14/19 Never Smoked Cigarettes Allergies, Adverse Reactions, Alerts Active Allergies Reaction Severity Comments Date Morphine 06/14/2019 Penicillin 06/14/2019 Medications Active Medications SIG Qnty Indications Ordering Provider Date Venlafaxine HCL ER take one daily 30caps N95.1 Vidya Stanley DO 2018 37.5mg Caps ER 24HR Ferrousul 1 by mouth 30tabs D64.9 Vidya Stanley DO 06/14/2019 325(65Fe) mg every day Tablets Nortrel 1/35 (28) 1 by mouth Unknown every day 1-35mg-mcg Tablets Immunizations Description No Information Available Vital Signs Date Vital Result Comment 06/14/2019 10:14am Height 68 inches 5'8" Weight 240.00 lb Heart Rate 106 /min BP Systolic 146 mmHg BP Diastolic 81 mmHg Body Temperature 98.2 F O2 % BldC Oximetry 99 % BMI (Body Mass Index) 36.5 kg/m2 Results Description No Information Available Procedures Description No Information Available Medical Devices Description No Information Available Encounters Description No Information Available Assessments Date Code Description Provider 06/14/2019 D64.9 Anemia, unspecified Vidya Stanley DO 06/14/2019 Z00.01 Encounter for general adult medical examination Vidya Stanley DO with abnormal findings 06/14/2019 Z12.31 Encounter for screening mammogram for malignant Vidya Stanley DO neoplasm of breast 06/14/2019 N95.1 Menopausal and female climacteric states Vidya Stanley DO Plan of Treatment Future Appointment(s):09/13/2019 8:00 am - Vidya Stanley DO at [facility] Internal [facility] - [address]/14/2018 - Vidya Stanley DOD64.9 Anemia, unspecifiedNew Medication:Ferrousul 325(65 Fe) mg - 1 by mouth every dayNew Labs:Iron & Iron Binding Capacity, Ordered: 06/14/19Vitamin B12 And Folate Serum, Ordered: 06/14/19Ferritin, Ordered: 06/14/19LDH, Ordered: 06/14/19CBC Auto Diff, Ordered : 06/14/19Retic Count, Ordered: 06/14/19Z00.01 Encounter for general adult medical examination with abnormal findingsNew Labs:Hemoglobin A1c (Glyco HGB), Ordered: 06/14/19Lipid Profile (Trig/Chol/HDL), Ordered: 06/14/19Z12.31 Encounter for screening mammogram for malignant neoplasm of breastNew Xrays: Mammogram Screening Altaf, Ordered: 06/14/19N95.1 Menopausal and female climacteric statesNew Medication:Venlafaxine HCL ER 37.5 mg - take one dailyFollow up:3 months Functional Status Description No Information Available Mental Status Description No Information Available Referrals Description No Information Available
[2019-08-09 18:09] VITALS: BP 158/64
--- NOTE | 2019-08-09 18:29 | UC ---
Minor Trauma HPI - HPI Summary HPI Summary: The patient is a 48-year-old female that was at work today when she went out to the parking lot to get something from her car. As she exited her car she slipped on black ice. She landed on her elbow. She is complaining of left elbow pain extending into her wrist. She denies any other injury. She is able to fully extend her left elbow however causes pain. She feels comfortable with her elbow at about a 90 angle. She denies any break in the skin. She denies any neck pain or headache. - History of Current Complaint Chief Complaint: UCUpperExtremity Stated Complaint: WRIST ELBOW INJURY Time Seen by Provider: 08/09/19 18:12 Hx Obtained From: Patient Hx Last Menstrual Period: 01/27/19 Onset/Duration: Sudden Onset, Lasting Hours Severity Initially: Moderate Severity Currently: Moderate Pain Intensity: 7 - with movement Pain Scale Used: 0-10 Numeric Mechanism Of Injury: Fall From A Standing Position Aggravating Factor(s): Movement Alleviating Factor(s): Rest Related History: Positive: Occupational Injury - And Place ointment she had exited work and redness is Body - Head: 1 - pain here - Allergies/Home Medications Allergies/Adverse Reactions: Allergies Allergy/AdvReac Type Severity Reaction Status Date / Time morphine Allergy Anxiety Verified 08/09/19 18:09 Penicillins Allergy Anaphylatic Verified 08/09/19 18:09 Shock PMH/Surg Hx/FS Hx/Imm Hx Previously Healthy: Yes - Surgical History Surgical History: None - Family History Known Family History: Positive: Unknown, Cardiac Disease, Non-Contributory - Social History Alcohol Use: None Substance Use Type: None Smoking Status (MU): Never Smoked Tobacco Review of Systems All Other Systems Reviewed And Are Negative: Yes Constitutional: Positive: Negative Skin: Positive: Negative Eyes: Positive: Negative ENT: Positive: Negative Respiratory: Positive: Negative Cardiovascular: Positive: Negative Genitourinary: Positive: Negative Motor: Positive: Negative Neurovascular: Positive: Negative Musculoskeletal: Positive: Arthralgia - LEFT ELBOW Neurological: Positive: Negative Psychological: Positive: Negative Physical Exam Triage Information Reviewed: Yes Appearance: Well-Appearing, No Pain Distress, Well-Nourished Vital Signs: Initial Vital Signs Temp 98.7 F 08/09/19 18:03 Pulse 76 08/09/19 18:03 Resp 16 08/09/19 18:03 BP 158/64 08/09/19 18:03 Pulse Ox 99 08/09/19 18:03 Vital Signs Reviewed: Yes Eyes: Positive: Conjunctiva Clear ENT: Positive: Hearing grossly normal, Uvula midline. Negative: Nasal congestion, Nasal drainage, Trismus, Muffled voice, Hoarse voice Dental Exam: Normal Neck: Positive: Supple, Nontender, No Lymphadenopathy Respiratory: Positive: Lungs clear, Normal breath sounds, No respiratory distress Cardiovascular: Positive: RRR, No Murmur Musculoskeletal: Positive: ROM Intact, No Edema, Other: - see image, left wrist FROM, nontender snuff box and distal ulna/radius Neurological: Positive: Alert Psychological Exam: Normal Skin Exam: Normal Diagnostics - Radiology No standard instances Radiology Interpretation Completed By: Radiologist Summary of Radiographic Findings: left elbow- no fx. left wrist- no fx/unla minus Minor Trauma Course/Dx - Differential Dx/Diagnosis Provider Diagnosis: Strain of left elbow Discharge ED - Sign-Out/Discharge Documenting (check all that apply): Patient Departure All imaging exams completed and their final reports reviewed: Yes - Discharge Plan Condition: Stable Disposition: HOME Patient Education Materials: Elbow Sprain (ED) Forms: *Work Release Referrals: Gabi Smith MD [Medical Doctor] - 1 Week Additional Instructions: Your elbow and wrist xrays were read as negative sling rest ice advil or aleve I suggest you see an orthopedist next week if you can not fully extend your arm without pain - Billing Disposition and Condition Condition: STABLE Disposition: Home
== END 2019-08-09 18:51 | disposition home or self-care (01) ==
LOC: UCEAST 17:41
DX: S46.812A Strain of other muscles, fascia and tendons at shoulder and upper arm level, left arm, initial encounter (principal); Z88.0 Allergy status to penicillin; Z88.5 Allergy status to narcotic agent; W00.0XXA Fall on same level due to ice and snow, initial encounter; Y92.9 Unspecified place or not applicable
CPT/HCPCS: 99212; G0463